=== PATIENT | female | born 1960 | race Caucasian/White ===

== ENCOUNTER 2018-02-28 00:15 | Inpatient (IN) | payer BC ==
[2018-02-28] VITALS (19 sets, daily range): BP systolic 100–158; BP diastolic 53–89
[~2018-02-28] VITALS: Ht 144.8 cm; Wt 81.8 kg
[~2018-02-28 00:15] MED LIST: SIMV20TA5 PO
[2018-02-28] MEDS ORDERED: normal saline 1000ML IV soln IVB ONE (00:40)
[2018-02-28] MEDS ORDERED: ondansetron/PF 4mg/2ml inj IV ONE (00:40)
[2018-02-28] MEDS ORDERED: ketorolac trometh. 30mg/ml inj. IV ONE (00:40)
[2018-02-28 00:57] LABS: COLOR,URINE YELLOW (Yellow); GLUCOSE, URINE NEGATIVE (Neg); KETONES,URINE NEGATIVE (Neg); LEUKOCYTE ESTERASE ,URINE SMALL (Neg); NITRITES, URINE NEGATIVE (Neg); OCCULT BLOOD,URINE MODERATE (Neg); PROTEIN,URINE NEGATIVE (Neg); UROBILINOGEN,URINE 0.2 E.U/dL (0.2-1.0)
[2018-02-28 00:58] LABS: CLARITY,URINE SLIGHTLY CLOUDY (Clear); UA COLLECTION TYPE CLN CATCH MIDSTREAM
[2018-02-28 01:07] LABS: CAL OXALATE CRYSTALS 1+ /HPF (NEGATIVE); MUCUS STRANDS FEW /LPF (Neg); SQUAMOUS EPITHELIAL CELL,UR MANY /LPF (FEW)
[2018-02-28 01:08] LABS: BACTERIA,URINE FEW /HPF (Neg); WBC,URINE 0-4 /HPF (0-4)
[2018-02-28 01:30] LABS: ALANINE AMINOTRANSFERASE 27 U/L (12-78); ALBUMIN 3.9 G/DL (3.4-5.0); ALBUMIN/GLOBULIN RATIO 1.4 (1.1-1.5); ALKALINE PHOSPHATASE 95 IU/L (46-116); ANION GAP 12 (8-16); ASPARTATE AMINO TRANSFERASE 21 U/L (10-37); BILIRUBIN,TOTAL 0.6 MG/DL (0.1-1.0); BLOOD UREA NITROGEN 17 MG/DL (7-18); BUN/CREATININE RATIO 19.8 (6.6-38.0); CALCIUM 9.5 MG/DL (8.5-10.1); CHLORIDE 108 MMOL/L (99-107); CREATININE 0.86 MG/DL (0.40-0.90); GLUCOSE 111 MG/DL (70-104); LIPASE 77 U/L (73-393); POTASSIUM 3.6 MMOL/L (3.5-5.1); SODIUM 145 MMOL/L (135-145); TOTAL CARBON DIOXIDE 25.1 MMOL/L (24-32); TOTAL PROTEIN 6.6 G/DL (6.4-8.2); eGFR 68 ML/MIN
[2018-02-28 02:10] LABS: BASOPHILS % (AUTO) 0.3 % (0-1); EOSINOPHILS # (AUTO) 0.3 X10'3 (0-0.9); EOSINOPHILS % (AUTO) 2.7 % (0-6); HEMATOCRIT 43.1 % (35.0-45.0); HEMOGLOBIN 14.7 g/dl (12.0-16.0); LYMPHOCYTES % (AUTO) 21.2 % (21-51); MEAN CORPUSCULAR HEMOGLOBIN 30.4 PG (27.0-31.0); MEAN CORPUSCULAR HGB CONC 34.1 % (33.0-36.5); MEAN CORPUSCULAR VOLUME 89.3 FL (78-98); MONOCYTES # (AUTO) 0.8 X10'3 (0-0.9); MONOCYTES % (AUTO) 8.8 % (2-12); NEUTROPHILS # (AUTO) 6.5 X10'3 (1.8-7.7); PLATELET COUNT 259 X10'3 (140-440); RED BLOOD COUNT 4.83 X10'6 (4.20-5.60); RED CELL DISTRIBUTION WIDTH 13.4 % (11.5-14.5); WHITE BLOOD COUNT 9.7 X10'3 (4.5-11.0)
[2018-02-28] MEDS ORDERED: LIDOcaine 2 gm/250ml D5W 250 ML IV ONE (02:45)
[2018-02-28 03:04] LABS: LARGE PLATELETS MODERATE; PLATELET ESTIMATE NORMAL
[2018-02-28] MEDS ORDERED: HYDROmorphone 2mg/ml vial IV PRN (03:20)
[2018-02-28] MEDS ORDERED: magnesium hydroxide 30ml (MOM) UD suspension PO PRN (03:35)
[2018-02-28] MEDS ORDERED: fentaNYL/PF 50MCG/1 ML 2ML syringe IV ONE (03:35)
[2018-02-28] MEDS ORDERED: mag hydrox/Alum hydrox/simeth 30ml oral suspension PO PRN (03:35)
[2018-02-28] MEDS ORDERED: ondansetron/PF 4mg/2ml inj IV PRN ×2 (03:35→13:00)
[2018-02-28] MEDS ORDERED: morphine 4 MG/ML inj SYRINge IV PRN ×3 (03:35→13:00)
[2018-02-28] MEDS ORDERED: acetaminophen 325mg tablet PO PRN (03:35)
[2018-02-28] MEDS: fentaNYL/PF 50MCG/1 ML 2ML syringe IV PRN ×2 (03:57→05:31)
[2018-02-28] MEDS: sodium chloride 0.45% 1,000 ML IV SCH ×2 (04:07→09:48)
[2018-02-28] MEDS: morphine 4 MG/ML inj SYRINge IV PRN ×2 (06:37→10:43)
[2018-02-28] MEDS ORDERED: heparin, porcine 5000 units/ml vial SQ SCH (08:00)
[2018-02-28] MEDS ORDERED: furosemide 20 MG/2 ML vial IV SCH (12:30)
[2018-02-28] MEDS ORDERED: ringers solution, lacted 1,000 ML IV ONE (12:56)
[2018-02-28] MEDS ORDERED: ringers solution, lacted 1,000 ML IV SCH (12:56)
[2018-02-28] MEDS ORDERED: labetalol 20mg/4ml (5mg/ml) syringe IV PRN (13:00)
[2018-02-28] MEDS ORDERED: fentaNYL/PF 50MCG/1 ML 2ML syringe IV PRN ×2 (13:00)
[2018-02-28] MEDS ORDERED: hydrALAZINE 20mg/ml inj. IV PRN (13:00)
[2018-02-28] MEDS ORDERED: iohexol 300 MG/1 ML 50ml polymer ONE (13:17)
[2018-02-28] MEDS ORDERED: HYDROcodone/acetaminophen 10/325mg tab PO PRN (13:25)
[2018-02-28] MEDS ORDERED: fentaNYL/PF 50MCG/1 ML 2ML syringe ONE (13:46)
[2018-02-28] MEDS ORDERED: propofol inj 20 ML IV ONE (13:46)
[2018-02-28] MEDS ORDERED: midazolam 2 mg/2 ml injection ONE (13:46)
[2018-02-28] MEDS ORDERED: sevoflurane 250ml liquid IH ONE (13:55)
[2018-02-28] MEDS ORDERED: dexamethasone sod phosphate 4mg/ml inj. ONE (14:10)
[2018-02-28] MEDS ORDERED: ceFAZolin 1000mg inj ONE ×2 (14:13)
[2018-02-28] MEDS: POTASSIUM CL IV SCH (17:53)
[2018-02-28] MEDS: SODIUM CHLORIDE 0.45% IV SCH (17:53)
[2018-02-28] MEDS ORDERED: tamsulosin 0.4mg capsule PO SCH (21:00)
[2018-03-01] MEDS: POTASSIUM CL IV SCH (01:39)
[2018-03-01] MEDS: SODIUM CHLORIDE 0.45% IV SCH (01:39)
[2018-03-01 05:30] LABS: ALBUMIN 2.9 G/DL (3.4-5.0); ANION GAP 10 (8-16); BLOOD UREA NITROGEN 16 MG/DL (7-18); BUN/CREATININE RATIO 24.2 (6.6-38.0); CALCIUM 8.8 MG/DL (8.5-10.1); CHLORIDE 109 MMOL/L (99-107); CREATININE 0.66 MG/DL (0.40-0.90); GLUCOSE 103 MG/DL (70-104); POTASSIUM 4.2 MMOL/L (3.5-5.1); SODIUM 141 MMOL/L (135-145); TOTAL CARBON DIOXIDE 22.4 MMOL/L (24-32); eGFR > 90 ML/MIN
[2018-03-01 07:15] VITALS: BP 120/54
[2018-03-01] MEDS ORDERED: TAMS0.4C32 PO (10:32)
[2018-03-01 11:00] VITALS: BP 85/46
== END 2018-03-01 11:15 | disposition home or self-care (01) | DRG 694 ==
LOC: ER 00:16 → ED HOLD 03:35 → SUR 3N 07:31
PROVIDERS: ADMIT Family Medicine; ATTEND Internal Medicine
PROC: BT1D1ZZ Fluoroscopy of Right Kidney, Ureter and Bladder using Low Osmolar Contrast (ICD-10-PCS; 2018-02-28)
PROC: 0T768DZ Dilation of Right Ureter with Intraluminal Device, Via Natural or Artificial Opening Endoscopic (ICD-10-PCS; principal; 2018-02-28 13:55)
DX: N13.2 Hydronephrosis with renal and ureteral calculous obstruction (principal); E78.5 Hyperlipidemia, unspecified; Z82.49 Family history of ischemic heart disease and other diseases of the circulatory system; Z83.3 Family history of diabetes mellitus; Z87.442 Personal history of urinary calculi; Z90.710 Acquired absence of both cervix and uterus
CPT/HCPCS: 96361; 96374; 96375; 99285; Z7506; 36415; 74176; 76000; 80048; 80053; 81001; 83690; 85025; 87070; A4402; C1758; C1769; C2617; J0690; J1100; J1170; J1644; J1885; J2001; J2250; J2270; J2405; J2704; J3010; J3480; J7030; J7120; Q9967

== ENCOUNTER 2018-05-12 08:06 | Emergency (ER) | payer BC ==
[~2018-05-12] VITALS: Ht 142.2 cm; Wt 75.0 kg
[~2018-05-12 08:06] MED LIST changes: +TAMS0.4C32 PO
[2018-05-12] MEDS ORDERED: morphine 4 MG/ML inj SYRINge IV PRN (08:35)
[2018-05-12] MEDS ORDERED: normal saline 1000ML IV soln IVB ONE (08:35)
[2018-05-12] MEDS ORDERED: ondansetron/PF 4mg/2ml inj IV ONE (08:35)
[2018-05-12 09:03] LABS: BASOPHILS % (AUTO) 0.5 % (0-1); EOSINOPHILS # (AUTO) 0.1 X10'3 (0-0.9); EOSINOPHILS % (AUTO) 0.8 % (0-6); HEMATOCRIT 43.6 % (35.0-45.0); HEMOGLOBIN 14.4 g/dl (12.0-16.0); LYMPHOCYTES # (AUTO) 1.4 X10'3 (1.1-4.8); LYMPHOCYTES % (AUTO) 18.6 % (21-51); MEAN CORPUSCULAR HEMOGLOBIN 29.9 PG (27.0-31.0); MEAN CORPUSCULAR VOLUME 90.4 FL (78-98); MEAN PLATELET VOLUME 10.5 FL (7.4-10.4); MONOCYTES # (AUTO) 0.3 X10'3 (0-0.9); MONOCYTES % (AUTO) 4.6 % (2-12); NEUTROPHILS # (AUTO) 5.7 X10'3 (1.8-7.7); NEUTROPHILS % (AUTO) 75.5 % (42-75); PLATELET COUNT 282 X10'3 (140-440); RED BLOOD COUNT 4.82 X10'6 (4.20-5.60); RED CELL DISTRIBUTION WIDTH 12.3 % (11.5-14.5); WHITE BLOOD COUNT 7.5 X10'3 (4.5-11.0)
[2018-05-12 09:19] LABS: ALANINE AMINOTRANSFERASE 24 U/L (12-78); ALBUMIN 3.7 G/DL (3.4-5.0); ALBUMIN/GLOBULIN RATIO 1.2 (1.1-1.5); ALKALINE PHOSPHATASE 93 IU/L (46-116); ANION GAP 7 (8-16); ASPARTATE AMINO TRANSFERASE 17 U/L (10-37); BILIRUBIN,TOTAL 0.5 MG/DL (0.1-1.0); BLOOD UREA NITROGEN 16 MG/DL (7-18); BUN/CREATININE RATIO 21.3 (6.6-38.0); CALCIUM 8.7 MG/DL (8.5-10.1); CHLORIDE 109 MMOL/L (99-107); CREATININE 0.75 MG/DL (0.40-0.90); GLUCOSE 109 MG/DL (70-104); LIPASE 80 U/L (73-393); POTASSIUM 3.8 MMOL/L (3.5-5.1); SODIUM 143 MMOL/L (135-145); TOTAL PROTEIN 6.7 G/DL (6.4-8.2); eGFR 79 ML/MIN
[2018-05-12] MEDS ORDERED: iohexol 300mg/ml 100ml inj. ONE (09:24)
[2018-05-12 09:44] LABS: LARGE PLATELETS FEW; PLATELET ESTIMATE NORMAL
[2018-05-12 10:14] LABS: URINE HCG NEGATIVE (NEG)
[2018-05-12 10:18] LABS: CLARITY,URINE CLEAR (Clear); COLOR,URINE YELLOW (Yellow); GLUCOSE, URINE NEGATIVE (Neg); KETONES,URINE NEGATIVE (Neg); LEUKOCYTE ESTERASE ,URINE NEGATIVE (Neg); NITRITES, URINE NEGATIVE (Neg); OCCULT BLOOD,URINE NEGATIVE (Neg); PROTEIN,URINE NEGATIVE (Neg); UROBILINOGEN,URINE 0.2 E.U/dL (0.2-1.0)
[2018-05-12 10:19] LABS: UA COLLECTION TYPE VOIDED
[2018-05-12] MEDS ORDERED: morphine 4 MG/ML inj SYRINge IV ONE (10:35)
[2018-05-12] MEDS ORDERED: ONDA4TAB9 SL (10:52)
[2018-05-12] MEDS ORDERED: DOCU-28 PO (10:52)
[2018-05-12 11:04] VITALS: BP 151/62
== END 2018-05-12 11:06 | disposition home or self-care (01) ==
LOC: ER 08:07
DX: K42.9 Umbilical hernia without obstruction or gangrene (principal); Z79.899 Other long term (current) drug therapy
CPT/HCPCS: 36415; 74177; 76705; 80053; 81003; 81025; 83690; 85025; 96374; 96375; 96376; 99285; J2270; J2405; J7030; Q9967

== ENCOUNTER 2018-06-24 09:00 | Day surgery (SDC) | payer BC ==
[2018-06-23 16:17] LABS: CLARITY,URINE SLIGHTLY CLOUDY (Clear); COLOR,URINE YELLOW (Yellow); GLUCOSE, URINE NEGATIVE (Neg); KETONES,URINE NEGATIVE (Neg); LEUKOCYTE ESTERASE ,URINE NEGATIVE (Neg); NITRITES, URINE NEGATIVE (Neg); OCCULT BLOOD,URINE NEGATIVE (Neg); PROTEIN,URINE NEGATIVE (Neg); UROBILINOGEN,URINE 0.2 E.U/dL (0.2-1.0)
[2018-06-23 16:18] LABS: UA COLLECTION TYPE CLN CATCH MIDSTREAM
[2018-06-23 16:25] LABS: BACTERIA,URINE FEW /HPF (Neg); FINE GRANULAR CAST 0-3 /LPF (NEGATIVE); MUCUS STRANDS FEW /LPF (Neg); RBC,URINE NONE SEEN /HPF (0-2); SQUAMOUS EPITHELIAL CELL,UR FEW /LPF (FEW)
[2018-06-23 16:28] LABS: BASOPHILS % (AUTO) 0.2 % (0-1); EOSINOPHILS # (AUTO) 0.1 X10'3 (0-0.9); EOSINOPHILS % (AUTO) 0.8 % (0-6); LYMPHOCYTES # (AUTO) 1.7 X10'3 (1.1-4.8); MEAN CORPUSCULAR HEMOGLOBIN 30.7 PG (27.0-31.0); MEAN CORPUSCULAR HGB CONC 34.3 % (33.0-36.5); MEAN CORPUSCULAR VOLUME 89.6 FL (78-98); MEAN PLATELET VOLUME 10.2 FL (7.4-10.4); MONOCYTES # (AUTO) 0.7 X10'3 (0-0.9); MONOCYTES % (AUTO) 6.6 % (2-12); NEUTROPHILS # (AUTO) 7.9 X10'3 (1.8-7.7); NEUTROPHILS % (AUTO) 76.4 % (42-75); PRE OP HEMATOCRIT 44.2 % (35.0-45.0); PRE OP HEMOGLOBIN 15.2 g/dL (12.0-16.0); PRE OP PLATELET COUNT 264 X10'3 (140-440); RED BLOOD COUNT 4.94 X10'6 (4.20-5.60)
[2018-06-23 16:44] LABS: ALBUMIN/GLOBULIN RATIO 1.3 (1.1-1.5); ALKALINE PHOSPHATASE 109 IU/L (46-116); BLOOD UREA NITROGEN 11 MG/DL (7-18); BUN/CREATININE RATIO 14.7 (6.6-38.0); CALCIUM 9.8 MG/DL (8.5-10.1); CHLORIDE 107 MMOL/L (99-107); CREATININE 0.75 MG/DL (0.40-0.90); PRE OP ALT 32 U/L (30-65); PRE OP ANION GAP 9 (8-16); PRE OP AST 17 U/L (10-37); PRE OP BILIRUB, TOTAL 0.8 MG/DL (0.0-1.0); PRE OP GLUCOSE 86 MG/DL (70-104); PRE OP SODIUM 144 MMOL/L (135-145); TOTAL CARBON DIOXIDE 27.7 MMOL/L (24-32); eGFR 79 ML/MIN
[~2018-06-24] VITALS: Ht 142.2 cm; Wt 79.0 kg
[2018-06-24] VITALS (10 sets, daily range): BP systolic 114–154; BP diastolic 63–78
[~2018-06-24 09:00] MED LIST changes: +Cefazolin 2GM/50ML dext iso,osmotic IVPB IV ONE; -TAMS0.4C32 PO; +famotidine 20mg tablet PO ONE; +ringers solution, lacted 1,000 ML IV SCH
[2018-06-24] MEDS ORDERED: famotidine 20mg tablet PO ONE (09:40)
[2018-06-24] MEDS ORDERED: ringers solution, lacted 1,000 ML IV SCH (12:37)
[2018-06-24] MEDS ORDERED: morphine 4 MG/ML inj SYRINge IV PRN ×2 (12:40)
[2018-06-24] MEDS ORDERED: proCHLORperazine 10 MG/2 ml inj IV PRN (12:40)
[2018-06-24] MEDS ORDERED: ondansetron/PF 4mg/2ml inj IV PRN (12:40)
[2018-06-24] MEDS ORDERED: meperidine/PF 25mg/ml syringe IV PRN ×2 (12:40)
[2018-06-24] MEDS ORDERED: ceFAZolin 1000mg inj ONE (13:02)
[2018-06-24] MEDS ORDERED: BUPIVAcaine/PF 2.5mg/ml (0.25%) 10ml vial ONE (13:03)
[2018-06-24] MEDS ORDERED: LIDOcaine 2% (20mg/ml) 5ml vial ONE (13:05)
[2018-06-24] MEDS ORDERED: sevoflurane 250ml liquid IH ONE (13:05)
[2018-06-24] MEDS ORDERED: midazolam 2 mg/2 ml injection ONE (13:17)
[2018-06-24] MEDS ORDERED: fentaNYL/PF 50MCG/1 ML 2ML syringe ONE ×2 (13:17→13:45)
[2018-06-24] MEDS ORDERED: dexamethasone sod phosphate 4mg/ml inj. ONE (13:23)
[2018-06-24] MEDS ORDERED: ketorolac trometh. 30mg/ml inj. ONE (13:24)
[2018-06-24] MEDS ORDERED: propofol inj 20 ML IV ONE (13:24)
[2018-06-24] MEDS ORDERED: ondansetron/PF 4mg/2ml inj ONE (13:24)
[2018-06-24] MEDS ORDERED: succinylcholine 20mg/ml inj IV ONE (13:46)
[2018-06-24] MEDS: meperidine/PF 25mg/ml syringe IV PRN ×2 (15:00→15:22)
== END 2018-06-24 15:45 | disposition home or self-care (01) ==
LOC: PAS 09:00
PROVIDERS: ATTEND Surgery
DX: K42.0 Umbilical hernia with obstruction, without gangrene (principal); I45.19 Other right bundle-branch block; E66.01 Morbid (severe) obesity due to excess calories; E78.5 Hyperlipidemia, unspecified; Z68.39 Body mass index [BMI] 39.0-39.9, adult; Z90.710 Acquired absence of both cervix and uterus; Z87.442 Personal history of urinary calculi; Z98.890 Other specified postprocedural states; Z79.899 Other long term (current) drug therapy; Z83.3 Family history of diabetes mellitus; Z80.8 Family history of malignant neoplasm of other organs or systems; Z82.49 Family history of ischemic heart disease and other diseases of the circulatory system
CPT/HCPCS: 36415; 49653; 80053; 81001; 85025; 87088; 93005; C1758; C1781; J0330; J0690; J1100; J1885; J2001; J2175; J2250; J2405; J2704; J3010; J3490; J7120; A7000

== ENCOUNTER → 2018-08-15 | Emergency (ER) | payer BC, OTHER ==
[~2018-08-15] VITALS: Ht 144.8 cm; Wt 80.0 kg
[~2018-08-15] MED LIST changes: -Cefazolin 2GM/50ML dext iso,osmotic IVPB IV ONE; +TRAM50TA2 PO; -famotidine 20mg tablet PO ONE; -ringers solution, lacted 1,000 ML IV SCH
[2018-08-15 14:27] VITALS: BP 155/54
== END | disposition home or self-care (01) ==
LOC: ER 14:25
DX: S00.83XA Contusion of other part of head, initial encounter (principal); Z79.899 Other long term (current) drug therapy; W01.10XA Fall on same level from slipping, tripping and stumbling with subsequent striking against unspecified object, initial encounter; Y93.89 Activity, other specified; Y92.89 Other specified places as the place of occurrence of the external cause; Y99.8 Other external cause status
CPT/HCPCS: 99284

== ENCOUNTER 2020-08-09 14:36 | Emergency (ER) | payer OTHER ==
[~2020-08-09] VITALS: Ht 142.2 cm; Wt 86.1 kg
[~2020-08-09 14:36] MED LIST changes: +LIDOcaine 1% W/epiNEPHrine 1:100,000 20ml vial ONE; +SIMV-42 PO; -SIMV20TA5 PO; -TRAM50TA2 PO
[2020-08-09] MEDS ORDERED: ondansetron 4mg rapidly disintigrating tab PO ONE (16:00)
[2020-08-09] MEDS ORDERED: HYDROcodone/acetaminophen 10/325mg tab PO ONE (16:00)
[2020-08-09] MEDS ORDERED: BUPIVAcaine 0.5% W/EPI /PF 30ml vial IJ ONE (16:00)
[2020-08-09] MEDS ORDERED: ONDA4TAB6 PO (17:08)
[2020-08-09] MEDS ORDERED: HYDR-4383 PO (17:08)
[2020-08-09 17:37] VITALS: BP 122/62
== END 2020-08-09 17:39 | disposition home or self-care (01) ==
LOC: ER 14:37
DX: S62.316A Displaced fracture of base of fifth metacarpal bone, right hand, initial encounter for closed fracture (principal); Z87.442 Personal history of urinary calculi; Z79.899 Other long term (current) drug therapy; W18.39XA Other fall on same level, initial encounter; Y93.89 Activity, other specified; Y92.89 Other specified places as the place of occurrence of the external cause; Y99.8 Other external cause status
CPT/HCPCS: 25605; 26605; 73130; 99284